=== PATIENT | male | born 1955 | race Caucasian/White ===

== ENCOUNTER 2021-04-23 05:09 | Inpatient (IN) | payer OTHER, MEDICARE ==
[2021-04-23] MEDS ORDERED: Labetalol HCl 100 MG/20 ML VIAL ONE (05:12)
[2021-04-23 06:45] LABS: SARS-CoV-2 NAA Rapid Test Not Detected (NotDetected)
[2021-04-23] MEDS ORDERED: Dextrose 50% Abboject 50 ML SYRINGE SLOW IVP PRN (06:46)
[2021-04-23] MEDS ORDERED: Dextrose 5% in Water 1,000 ML IV PRN (06:46)
[2021-04-23] MEDS ORDERED: hydrALAZINE 20 MG/ML VIAL SLOW IVP PRN (06:46)
[2021-04-23] MEDS ORDERED: Ondansetron PF 4 MG/2 ML Vial IVP PRN (06:46)
[2021-04-23 07:21] LABS: #Lymphocytes 1.6 thou/uL (1.20-3.40); #Monocytes 1.3 thou/uL (0.11-0.59); #Neutrophils 5.8 thou/uL (1.40-6.50); %Basophils 0.1 % (0.0-1.0); %Eosinophils 0.5 % (0.0-10.0); %Lymphocytes 18.3 % (21.0-51.0); %Monocytes 14.3 % (0.0-10.0); %Neutrophils 66.7 % (42.0-75.0); Hemoglobin 11.8 g/dL (14.0-18.0); Mean Corpuscular HGB CONC 33.7 g/dL (32.0-36.0); Mean Corpuscular Hemoglobin 29.6 pg (27.0-31.0); Mean Corpuscular Volume 87.9 fL (78.0-98.0); Mean Platelet Volume 7.7 fL (7.4-10.4); Platelet Count 225 thou/uL (130-400); RBC Distribution Width 13.5 % (11.5-14.5); Red Blood Cell (RBC) Count 3.99 mill/uL (4.70-6.10); White Blood Cell (WBC) Count 8.7 thou/uL (4.8-10.8)
[2021-04-23 07:32] LABS: PTT 29.3 sec (22.9-36.1); Prothrombin Time 13.6 sec (12.0-14.7)
[2021-04-23 07:41] LABS: Hemoglobin A1c 7.1 % (4.0-6.0)
[2021-04-23 07:42] LABS: Anion Gap 12 mmol/L (10-20); BUN (Urea Nitrogen) 20 mg/dL (8.4-25.7); Calc. Creatinine Clearance 0 mL/min (70-130); Calcium 8.9 mg/dL (7.8-10.44); Carbon Dioxide 25 mmol/L (23-31); Chloride 106 mmol/L (98-107); Glucose 176 mg/dL (80-115); Magnesium 1.7 mg/dL (1.6-2.6); Potassium 3.5 mmol/L (3.5-5.1); Sodium 139 mmol/L (136-145)
[2021-04-23] MEDS: Acetaminophen 325 MG TAB PO SCH ×3 (08:10→19:43)
[2021-04-23] MEDS: Sodium Chloride 0.9% 1,000 ML IV SCH ×2 (08:51→15:50)
[2021-04-23] MEDS ORDERED: Acetaminophen 325 MG TAB ONE (09:12)
[2021-04-23] MEDS ORDERED: Magnesium Sulfate 3 GM in Sodium Chloride 0.9% 100 ML IVPB SCH (15:00)
[2021-04-23] MEDS ORDERED: Potassium Phosphate 30 MMOL, Magnesium Sulfate 3 GM in Sodium Chloride 0.9% 250 ML IVPB SCH (15:00)
[2021-04-24] MEDS: Acetaminophen 325 MG TAB PO SCH ×4 (01:39→18:41)
[2021-04-24] MEDS: Sodium Chloride 0.9% 1,000 ML IV SCH ×2 (04:51→15:34)
[2021-04-24] MEDS: Insulin Regular 300 UNITS/3 ML VIAL SC PRN ×3 (05:53→17:46)
[2021-04-24] MEDS: metFORMIN 500 MG TAB PO SCH ×2 (09:22→17:46)
[2021-04-24] MEDS: Loratadine 10 MG TAB PO SCH (09:22)
[2021-04-24] MEDS: Tamsulosin HCl 0.4 MG CAP PO SCH (20:41)
[2021-04-24] MEDS: Rosuvastatin 20 MG TAB PO SCH (20:41)
[2021-04-25] MEDS: Sodium Chloride 0.9% 1,000 ML IV SCH ×3 (02:20→21:06)
[2021-04-25] MEDS: Acetaminophen 325 MG TAB PO SCH ×4 (02:20→20:13)
[2021-04-25] MEDS: Insulin Regular 300 UNITS/3 ML VIAL SC PRN ×2 (06:18→12:13)
[2021-04-25] MEDS: metFORMIN 500 MG TAB PO SCH ×2 (08:54→17:52)
[2021-04-25] MEDS: Loratadine 10 MG TAB PO SCH (08:54)
[2021-04-25] MEDS: Tamsulosin HCl 0.4 MG CAP PO SCH (21:15)
[2021-04-25] MEDS: Rosuvastatin 20 MG TAB PO SCH (21:15)
[2021-04-26] MEDS: Sodium Chloride 0.9% 1,000 ML IV SCH (05:17)
[2021-04-26] MEDS: Acetaminophen 325 MG TAB PO SCH ×4 (05:17→18:53)
[2021-04-26] MEDS: Loratadine 10 MG TAB PO SCH (08:02)
[2021-04-26] MEDS: metFORMIN 500 MG TAB PO SCH ×2 (08:02→16:40)
[2021-04-26] MEDS: Tamsulosin HCl 0.4 MG CAP PO SCH (20:37)
[2021-04-26] MEDS: Rosuvastatin 20 MG TAB PO SCH (20:37)
[2021-04-27] MEDS: Acetaminophen 325 MG TAB PO SCH ×4 (01:33→20:27)
[2021-04-27 08:07] VITALS: BMI 28.7
[2021-04-27] MEDS: metFORMIN 500 MG TAB PO SCH ×2 (08:33→18:41)
[2021-04-27] MEDS: Loratadine 10 MG TAB PO SCH (08:36)
[2021-04-27] MEDS: Tamsulosin HCl 0.4 MG CAP PO SCH (20:27)
[2021-04-27] MEDS: Rosuvastatin 20 MG TAB PO SCH (20:27)
[2021-04-28] MEDS: Acetaminophen 325 MG TAB PO SCH ×3 (01:17→14:32)
[2021-04-28] MEDS: metFORMIN 500 MG TAB PO SCH (08:30)
[2021-04-28 11:35] VITALS: BP 130/73; TEMP 98
[2021-04-28] MEDS: Loratadine 10 MG TAB PO SCH (14:31)
== END 2021-04-28 16:50 | DRG 87 ==
LOC: ERS 05:09 → ERHOLD 06:49 → OBSVTOIN 09:57 → SURG A 11:12
PROVIDERS: ADMIT Specialist; ATTEND Specialist
DX: S06.6X0A Traumatic subarachnoid hemorrhage without loss of consciousness, initial encounter (principal); W18.30XA Fall on same level, unspecified, initial encounter; Z20.822 Contact with and (suspected) exposure to COVID-19; E11.9 Type 2 diabetes mellitus without complications; E78.5 Hyperlipidemia, unspecified; E53.8 Deficiency of other specified B group vitamins; G40.909 Epilepsy, unspecified, not intractable, without status epilepticus; Z79.84 Long term (current) use of oral hypoglycemic drugs; Z79.899 Other long term (current) drug therapy
CPT/HCPCS: 0240U; 36415; 36416; 70450; 80164; 83036; 83735; 84100; 84146; 84443; 85730; 96374; G0378; G0390; J1815; J3475; J7030